=== PATIENT | female | born 2005 | race Caucasian/White ===

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

== ENCOUNTER → 2023-07-14 | Outpatient (REF) | payer BC, OTHER | LOC: M LABWUC 12:22 | PROVIDERS: ATTEND Physician Assistant | DX: R10.30 Lower abdominal pain, unspecified (principal) ==

== ENCOUNTER → 2024-08-11 | Outpatient (CLI) | payer BC ==
[~2024-08-11] MED LIST changes: +ONDA-282 PO; -ONDA4TAB6 PO
[2024-08-11 13:58] LABS: HEMATOCRIT 40.9 % (36.0-47.0); HEMOGLOBIN 13.9 g/dl (12.0-15.5); MEAN CORPUSCULAR HEMOGLOBIN 31.7 pg (27.0-33.0); MEAN CORPUSCULAR VOLUME 93.4 fl (80.0-96.0); PLATELET COUNT, AUTOMATED 300 10^3/uL (150-450); RED BLOOD COUNT 4.38 10^6/uL (4.00-5.40)
[2024-08-11 14:32] LABS: HIV 1&2 SCREEN NEGATIVE (NEGATIVE)
[2024-08-11 14:40] LABS: HEPATITIS C VIRUS ABY INDEX 0.11 INDEX (<0.8)
[2024-08-11 15:49] LABS: GC DNA AMPLIFICATION NEGATIVE (NEGATIVE)
== END ==
LOC: M PLALAB 10:44
PROVIDERS: ATTEND Obstetrics & Gynecology
DX: Z34.91 Encounter for supervision of normal pregnancy, unspecified, first trimester (principal)

== ENCOUNTER → 2024-10-13 | Outpatient (CLI) | payer BC | LOC: M WHC 07:24 | PROVIDERS: ATTEND Advanced Practice Midwife | DX: Z34.02 Encounter for supervision of normal first pregnancy, second trimester (principal) ==

== ENCOUNTER → 2025-02-01 | Outpatient (REF) | payer BC | LOC: M PLALAB 07:00 | PROVIDERS: ATTEND Nurse Practitioner Family | DX: Z34.83 Encounter for supervision of other normal pregnancy, third trimester (principal) ==

== ENCOUNTER 2025-02-26 14:51 | Inpatient (IN) | payer BC ==
[~2025-02-26] VITALS: Ht 167.6 cm; Wt 92.2 kg
[2025-02-26] VITALS (12 sets, daily range): BP systolic 116–133; BP diastolic 61–87
[~2025-02-26 14:51] MED LIST changes: -IBUP-1022 PO; +IBUP600T42 PO
[2025-02-26] MEDS ORDERED: HOME MED LIST COMPLETE! XX SCH (15:10)
[2025-02-26] MEDS ORDERED: OXYTOCIN DRIP 30 UNITS in IV 1 EA IV PRN (15:55)
[2025-02-26 16:23] LABS: PLATELET COUNT, AUTOMATED 314 10^3/uL (150-450)
[2025-02-26] MEDS: BUTORPHANOL 2 MG/ML 1 ML VIAL IV ONE (17:18)
[2025-02-26 17:22] LABS: HIV 1&2 SCREEN NEGATIVE (NEGATIVE)
[2025-02-26 17:29] LABS: HEPATITIS C VIRUS ABY INDEX < 0.02 INDEX (<0.8)
[2025-02-26] MEDS ORDERED: ONDANSETRON 4MG 2ML VIAL IV PRN (19:50)
[2025-02-26] MEDS ORDERED: NALOXONE INJ 0.4 MG/1 ML VIAL IV PRN (19:50)
[2025-02-26] MEDS ORDERED: EPIDURAL/PCA KEYS XX PRN (19:50)
[2025-02-26] MEDS ORDERED: diphenhydrAMINE 50 MG/ML VIAL IV PRN (19:50)
[2025-02-26] MEDS: LR 500 ML IV PRN (20:11)
[2025-02-26] MEDS: FENTANYL/ROPIVACAINE/NACL BAG 100 ML EPIDURAL SCH (20:25)
[2025-02-26] MEDS: OXYTOCIN DRIP 30 UNITS in IV 1 EA IV SCH (21:45)
[2025-02-27] VITALS (24 sets, daily range): BP systolic 116–147; BP diastolic 56–82; O2SAT 96–99
[2025-02-27] MEDS: LR 1,000 ML IV SCH (09:32)
[2025-02-27] MEDS: LIDOCAINE 1% MDV 20 ML VIAL INFIL PRN (12:34)
[2025-02-27 12:38] LABS: CORD GAS ABE A -11.6; CORD GAS ABE V -9.5; CORD GAS HCO3 A 17.1 MMOL/L; CORD GAS HCO3 V 16.2 MMOL/L; CORD GAS O2 SAT A 26.9 %; CORD GAS O2 SAT V 51.8 %; CORD GAS PCO2 A 48.5 mmHg; CORD GAS PCO2 V 35.5 mmHg; CORD GAS PH A 7.165 UNITS; CORD GAS PH V 7.278 UNITS; CORD GAS PO2 A 16.1 mmHg; CORD GAS PO2 V 23.1 mmHg; CORD GAS SBC A 14.1 MMOL/L; CORD GAS SBC V 16.0 MMOL/L; CORD GAS TCO2 A 18.6 MMOL/L; CORD GAS TCO2 V 17.3 MMOL/L
[2025-02-27] MEDS ORDERED: MOM 30 ML SUSPENSION UDC PO PRN (13:00)
[2025-02-27] MEDS ORDERED: RHOGAM 300MCG (1500IU) INJ IM SCH (13:00)
[2025-02-27] MEDS ORDERED: ACETAMINOPHEN 500 MG TAB PO PRN (13:00)
[2025-02-27] MEDS ORDERED: DOCUSATE SODIUM 100 MG CAPSULE PO PRN (13:00)
[2025-02-27] MEDS ORDERED: IBUPROFEN 800 MG TAB PO PRN (13:00)
[2025-02-27] MEDS ORDERED: ANUSOL HC CREAM 30 GM TOP PRN (13:00)
[2025-02-27] MEDS ORDERED: METHYLERGONOVINE MALEATE 0.2 MG/ML 1 ML VIAL IM PRN (13:00)
[2025-02-28 06:00] VITALS: BP 122/65; O2SAT 98
[2025-02-28] MEDS: IBUPROFEN 600 MG TAB PO PRN (06:17)
[2025-02-28] MEDS: ACETAMINOPHEN 325 MG TAB PO PRN (06:18)
[2025-02-28] MEDS: DIBUCAINE 1% OINTMENT 30 GM TOP PRN (08:10)
[2025-02-28] MEDS: PRENATAL VITAMINS CHEWABLE TABLET PO SCH (08:10)
[2025-02-28 18:00] VITALS: BP 130/58; O2SAT 98
[2025-03-01 06:00] VITALS: BP 120/58; O2SAT 98
[2025-03-01] MEDS: MEASLES,MUMPS,RUBELLA VACCINE INJ (MMR-II) SC.IMMUN ONE (09:07)
== END 2025-03-01 11:25 | disposition home or self-care (01) | DRG 560 ==
LOC: M LDO 14:51 → M LDI 15:51 → M OBS 02-27 15:17
PROVIDERS: ADMIT Specialist; ATTEND Specialist
PROC: 10E0XZZ Delivery of Products of Conception, External Approach (ICD-10-PCS; principal; 2025-02-27)
PROC: 0HQ9XZZ Repair Perineum Skin, External Approach (ICD-10-PCS; 2025-02-27)
DX: O48.0 Post-term pregnancy (principal); Z37.0 Single live birth; Z3A.40 40 weeks gestation of pregnancy; O70.0 First degree perineal laceration during delivery